=== PATIENT | male | born 2000 | race Caucasian/White ===

== ENCOUNTER 2023-08-23 07:15 | Day surgery (SDC) | payer OTHER ==
[~2023-08-23] VITALS: Ht 177.8 cm; Wt 104.1 kg
[~2023-08-23 07:15] MED LIST: BACL10TA2 PO; IBUP1TAB6 PO
[2023-08-23] MEDS ORDERED: LIDOCAINE 2% 100MG/5ML SDV (FOR ANES.) As Ordered ONE (08:13)
[2023-08-23] MEDS ORDERED: ONDANSETRON 4MG 2ML VIAL As Ordered ONE (08:13)
[2023-08-23] MEDS ORDERED: SUGAMMADEX SODIUM 500 MG/5 ML VIAL (BRIDION) As Ordered ONE (08:13)
[2023-08-23] MEDS ORDERED: ROCURONIUM BROMIDE 50MG/5ML VIAL As Ordered ONE (08:13)
[2023-08-23] MEDS ORDERED: propofoL 200 MG/20 ML VIAL As Ordered ONE (08:13)
[2023-08-23] MEDS ORDERED: TRANEXAMIC ACID 100 MG/ML 10ML VIAL As Ordered ONE (08:20)
[2023-08-23] MEDS ORDERED: VANCOMYCIN 1000MG/20ML VIAL As Ordered ONE (08:21)
[2023-08-23] MEDS ORDERED: LIDOCAINE 1% SDV 30ML VIAL As Ordered ONE (08:21)
[2023-08-23] MEDS: LR 1,000 ML IV SCH (08:27)
[2023-08-23] MEDS: dexAMETHasone 10MG/1ML VIAL PRES.FREE PN ONE (08:35)
[2023-08-23] MEDS: EPINEPHrine INJ 1 MG/ML 1ML AMP PN ONE (08:35)
[2023-08-23] MEDS ORDERED: fentaNYL 250 MCG/5 ML INJECTION As Ordered ONE (08:46)
[2023-08-23] MEDS: MIDAZOLAM INJ 2MG/2ML VIAL IV PRN (08:48)
[2023-08-23] MEDS: fentaNYL 100 MCG/2 ML INJECTION IV PRN (08:48)
[2023-08-23] MEDS: LIDOCAINE 1% SDV 5ML VIAL PN ONE (08:49)
[2023-08-23] MEDS: ROPIvacaine 0.5% 30ML VIAL PN ONE (08:50)
[2023-08-23] MEDS: ceFAZolin SOD 2 GM in IV 1 EA IV ONE (11:09)
[2023-08-23] MEDS: TRANEXAMIC ACID 100 MG/ML 10ML VIAL IV ONE (11:19)
[2023-08-23] MEDS ORDERED: ACETAMINOPHEN 1000MG 100ML IV BAG As Ordered ONE (11:27)
[2023-08-23] MEDS: EPINEPHrine 1MG/ML INJ 30ML MD-VIAL As Ordered ONE (11:48)
[2023-08-23] MEDS ORDERED: LR 1,000 ML IV SCH (15:00)
[2023-08-23] MEDS ORDERED: fentaNYL 100 MCG/2 ML INJECTION IV PRN (15:00)
[2023-08-23] MEDS ORDERED: HYDROMORPHONE HCL 0.5 MG/ 0.5 ML SYRINGE IV PRN (15:00)
[2023-08-23] MEDS ORDERED: oxyCODONE 5MG TAB PO PRN (15:00)
[2023-08-23] MEDS: ONDANSETRON 4MG 2ML VIAL IV PRN (15:50)
[2023-08-23 17:10] VITALS: BP 111/65; TEMP 97.3; O2SAT 95
== END 2023-08-23 17:20 | disposition home or self-care (01) ==
LOC: M SDC 07:15
PROVIDERS: ATTEND Orthopaedic Surgery
DX: M25.312 Other instability, left shoulder (principal); M25.512 Pain in left shoulder
CPT/HCPCS: 29806; 64415; C1713; J0131; J0171; J0690; J1100; J2250; J2405; J2795; J3010